=== PATIENT | female | born 1965 | race Caucasian/White ===

== ENCOUNTER 2023-01-06 21:06 | Outpatient (CLI) | payer MEDICARE, MEDICAID, SELFPAY | END 2023-01-06 21:07 | disposition home or self-care (01) | LOC: SLEEP 21:10 | PROVIDERS: Visit Provider Nurse Practitioner | DX: G47.33 Obstructive sleep apnea (adult) (pediatric) (principal) | CPT/HCPCS: 95810 ==

== ENCOUNTER 2023-11-18 12:43 | Outpatient (CLI) | payer MEDICARE, MEDICAID, SELFPAY | END 2023-11-18 12:44 | disposition home or self-care (01) | LOC: AMB 11-28 08:32 | PROVIDERS: Visit Provider Family Medicine | DX: E11.65 Type 2 diabetes mellitus with hyperglycemia (principal) | CPT/HCPCS: A0425; A0429 ==

== ENCOUNTER 2023-11-18 13:06 | Emergency (ER) | payer MEDICARE, MEDICAID, SELFPAY ==
[2023-11-18] VITALS (7 sets, daily range): BP systolic 114–134; BP diastolic 67–83; PULSE 83–100; RESP 16–18; TEMP 36.7; O2SAT 95–98; BMI 31.6
--- NOTE | 2023-11-18 13:24 | ED.GENADULT ---
HPI - General Adult General Chief complaint: Diabetic Related Problem Stated complaint: Diabetes Time Seen by Provider: 11/18/23 13:22 History of Present Illness HPI narrative: Patient been feeling ill for months mush brain. Recent Dx with diabetes, back in clinic today for recheck and blood glucose at 438. Very hard to eat. 58-year-old woman presenting to the emergency depart with concern of high blood sugars. I was contacted by clinic where she was being seen blood sugar over 450 beyond the reading. Was more confused today. Does live independently. Newly diagnosed with diabetes with hemoglobin A1c reported of 13.9. Has been for many months does not feeling well. Kind of foggy. Headaches over the last month or 2. She has been extremely thirsty. I asked her if she has been urinating a lot and she says whenever I drink which apparently also has frequent. No pain other than the headaches. No focal weakness. No fevers. No cough cold symptoms described. She has been having a lot of nausea which has been making it hard to eat. She denies nausea though at this time. Does note a history of IBS and chronic diarrhea. Related Data Home Medications Medication Instructions Recorded Confirmed buspirone 30 mg tablet 30 mg PO BID 11/18/23 11/18/23 celecoxib 200 mg capsule 200 mg PO PRN 11/18/23 duloxetine 30 mg capsule,delayed mg PO 11/18/23 release duloxetine 60 mg capsule,delayed mg PO 11/18/23 release fluconazole 150 mg tablet mg PO 11/18/23 fluticasone 500 mcg-salmeterol 50 1 ea inhalation BID 11/18/23 11/18/23 mcg/dose blistr powdr for inhalation (Advair Diskus) fluticasone propionate 50 2 spray intranasal DAILY 11/18/23 11/18/23 mcg/actuation nasal spray,suspension gabapentin 300 mg capsule mg PO 11/18/23 levothyroxine 50 mcg tablet 50 mcg PO QAM 11/18/23 11/18/23 linaclotide 290 mcg capsule 290 mcg PO DAILY 11/18/23 11/18/23 (Linzess) metformin 500 mg tablet mg PO 11/18/23 metronidazole 500 mg tablet 500 mg PO BID 11/18/23 11/18/23 montelukast 10 mg tablet 10 mg PO QPM 11/18/23 11/18/23 omeprazole 40 mg capsule,delayed 40 mg PO DAILY 11/18/23 11/18/23 release polyethylene glycol 3350 17 17 g PO DAILY 11/18/23 11/18/23 gram/dose oral powder quetiapine 100 mg tablet 100 mg PO QPM 11/18/23 11/18/23 sumatriptan succinate 50 mg tablet See Rx Instructions PO .COMPLEX 11/18/23 11/18/23 (Imitrex) topiramate 100 mg tablet 100 mg PO BID 11/18/23 11/18/23 Previous Rx's Medication Instructions Recorded ondansetron 4 mg disintegrating 4 mg PO Q4-6H PRN nausea and 11/18/23 tablet vomiting #20 tabs Allergies Allergy/AdvReac Type Severity Reaction Status Date / Time morphine Allergy Intermediate Itching Verified 11/18/23 14:01 methadone Allergy Unknown Verified 11/18/23 14:01 Review of Systems Status of ROS: Reports: 6 or more systems reviewed and unremarkable except as noted in History and below PFSH PFS Social History Smoking Status: Never smoker Do you use any of these nicotine containing products: Vaping Products Second hand tobacco smoke exposure: No How often do you have a drink containing alcohol: never AUDIT-C Alcohol total score: 0 Non-prescribed substance use: marijuana (any form) service: No Exam Narrative: Exam Narrative: Seems distracted. Generally uncomfortable. Breathing easily. Oropharynx is sticky. Cranial nerves 2-12 intact. Pupils are equal and risk. Lungs are clear. Heart in elevated to tachycardic rate in a regular rhythm. Abdomen is soft overweight and not tender. Extremities without edema. Skin is warm and dry without apparent rash. Const: Vital Signs, click to edit/add: Vital Signs - 24 hr 11/18/23 13:12 11/18/23 14:07 11/18/23 16:23 Temperature 98.1 F Pulse Rate [Pulse Oximeter] 100 94 91 Respiratory Rate 16 16 18 Blood Pressure [Ri ght Upper Arm] 114/67 134/83 119/77 Pulse Oximetry 95 98 95 Oxygen Delivery Me thod Room Air Room Air Room Air Documenting provider has reviewed patient's vital signs: yes Course Vital Signs Vital signs: Initial Vital Signs Temperature 98.1 F 11/18/23 13:12 Temperature Source Temporal Artery Scan 11/18/23 13:12 Pulse Rate 100 11/18/23 13:12 Respiratory Rate 16 11/18/23 13:12 Blood Pressure 114/67 11/18/23 13:12 Blood Pressure Mean 82 11/18/23 13:12 Blood Pressure Position Sitting 11/18/23 13:12 Pulse Oximetry 95 11/18/23 13:12 Oxygen Delivery Method Room Air 11/18/23 13:12 Vital Signs Temperature 98.1 F 11/18/23 13:12 Pulse Rate 100 11/18/23 13:12 Respiratory Rate 16 11/18/23 13:12 Blood Pressure 114/67 11/18/23 13:12 Pulse Oximetry 95 11/18/23 13:12 Oxygen Delivery Method Room Air 11/18/23 13:12 Temperature 98.1 F 11/18/23 13:12 Pulse Rate 91 11/18/23 16:23 Respiratory Rate 18 11/18/23 16:23 Blood Pressure 119/77 11/18/23 16:23 Pulse Oximetry 95 11/18/23 16:23 Oxygen Delivery Method Room Air 11/18/23 16:23 Medications Administered Medications: Discontinued Medications Generic Name Dose Route Start Last Admin Trade Name Freq PRN Reason Stop Dose Admin Sodium Chloride 1,000 mls @ 1,000 mls/hr 11/18/23 13:40 11/18/23 15:10 0.9 % Sodium Chloride 1000 Ml IV 11/18/23 14:39 Infused .Q1H ONE Infusion Lactated Ringer's 1,000 mls @ 1,000 mls/hr 11/18/23 14:42 11/18/23 18:14 Lactated Ringers 1000 Ml IV 11/18/23 15:41 Infused .Q1H ONE Infusion Medical Decision Making MDM Narrative Medical decision making narrative: Will monitor here in the emergency department. I think is dehydrated at a minimum. Will look for evidence of infection. Check labs for degree of acidosis to warrant other emergent interventions. Is struggling with idea of diabetes and treatment for this and reestablishing primary care/clinic. Struggling with nutrition recommendations. Spent some time in discussion about management of diabetes. Labs are overall reassuring. VBGs, showing slight compensated acidosis. Normal sodium and potassium and renal function. Urine notable for ketones. And blood sugar about 450. Improved on recheck during time in the ER. On reassessment, noting that feels improved. More energy. I think can be discharged to outpatient follow up. See patient discharge plan for further discussion Lab Data Lab results reviewed: Yes I reviewed the patient's lab results Labs: Lab Results 11/18/23 11/18/23 11/18/23 Range/Units 13:55 14:00 18:29 WBC 6.86 (4.50-11.00) K/uL RBC 5.10 (4.00-5.20) m/uL Hgb 16.2 H (12.0-16.0) gm/dL Hct 46.5 (33.0-51.0) % MCV 91 (80-100) fL MCH 32 (26-34) pg MCHC 35 (32-36) gm/dL RDW Coeff of Vicky 12.3 (11.5-15.5) % Plt Count 292 (140-440) K/uL Neut % (Auto) 56.1 (42.0-72.0) % Lymph % (Auto) 30.8 (20-44) % Anson % (Auto) 6.4 (0.0-11.0) % Eos % (Auto) 5.4 (0.0-7.0) % Baso % (Auto) 0.9 (0.0-3.0) % Neut # (Auto) 3.85 (1.7-7.0) K/uL Lymph # (Auto) 2.11 (0.90-2.90) K/uL Anson # (Auto) 0.40 (0.00-0.90) K/UL Eos # (Auto) 0.37 (0.00-0.50) K/uL Baso # (Auto) 0.06 (0.00-0.30) K/uL Abs Immat Gran (auto) 0.03 (0.00-0.30) K/uL Imm/Tot Granulo (auto) 0.4 % VBG pH 7.313 L (7.32-7.43) VBG pCO2 43 (40-50) mmHG VBG pO2 < 30.0 (25-47) mmHG VBG HCO3 22 (21-28) mmol/L Sodium 135 (135-149) mmol/L Potassium 4.9 (3.6-5.1) mmol/L Chloride 105 (96-114) mmol/L Carbon Dioxide 20 (20-32) mmol/L Anion Gap 10 (7-15) mEq/L BUN 24 (7-30) mg/dL Creatinine 0.5 (0.5-1.5) mg/dL Estimated Creat Clear 113.05 Estimated GFR 110 ml/min Glucose 458 H* (60-115) mg/dL Lactate 1.4 (0.5-1.9) mmol/L Calcium 9.3 (8.4-10.6) mg/dL Magnesium 2.0 (1.5-2.6) mg/dL Total Bilirubin 0.7 (0.1-1.5) mg/dL Direct Bilirubin 0.4 (0.0-0.5) mg/dL AST 34 (12-35) U/L ALT 45 H (4-35) U/L Alkaline Phosphatase 135 (40-150) U/L C-Reactive Protein < 0.5 L (0.5-1.0) mg/dL NT-Pro-B Natriuret Pep < 20 pg/mL Total Protein 7.1 (6.0-8.3) g/dL Albumin 4.1 (3.3-5.0) g/dL Lipase 152 (23-300) U/L TSH 3.030 (0.270-4.20) uIU/mL Urine Color Yellow (Yellow) Urine Appearance Clear (Clear) Urine pH 5.5 (5.0-8.5) Ur Specific Hilbert 1.010 (1.000-1.030) Urine Protein Negative (Negative) Urine Glucose (UA) 2+ A (Negative) Urine Ketones 3+ A (Negative) Urine Blood Negative (Negative) Urine Nitrite Negative (Negative) Urine Bilirubin Negative (Negative) Urine Urobilinogen 0.2 (0.2-1.0) Ur Leukocyte Esterase Negative (Negative) Urine RBC 0-2 (0-2) Urine WBC 0-2 (0-5) Ur Squamous Epith Cells Few (None-Few) Urine Bacteria Few A (None) Urine Opiates Screen Negative (Negative) Ur Oxycodone Screen Negative (Negative) Urine Methadone Screen Negative (Negative) Ur Barbiturates Screen Negative (Negative) U Tricyclic Antidepress Negative (Negative) Ur Phencyclidine Scrn Negative (Negative) Ur Amphetamines Screen Negative (Negative) U Methamphetamines Scrn Negative (Negative) U Benzodiazepines Scrn Negative (Negative) Urine Cocaine Screen Negative (Negative) U Marijuana (THC) Screen Negative (Negative) Ur Drug Screen Comment See Note Lab Acknowledgement Test Added ECG Data Attestation: I personally reviewed and interpreted this ECG as follows: (normal sinus rhythm with a partial right bundle and a rate of 95) Discharge Plan Discharge Clinical Impression: Diabetes, Hyperglycemia, Dehydration Patient Disposition: Home w/ Parent or Adult Condition: Improved Additional Instructions: Does appear that you have a number of challenges. Please look at this as an opportunity as well. Please continue taking your metformin. Please call tomorrow to follow-up appointment with your new primary care provider. Also reschedule with the pre billing clinician. In the meantime I do think that there should be a good amount of information on eating for diabetes and for vegetarian online as discussed. Prescriptions: New ondansetron 4 mg tablet,disintegrating 4 mg PO Q4-6H PRN (Reason: nausea and vomiting) Qty: 20 0RF No Action celecoxib 200 mg capsule 200 mg PO PRN metformin 500 mg tablet PO fluconazole 150 mg tablet PO metronidazole 500 mg tablet 500 mg PO BID omeprazole 40 mg capsule,delayed release(DR/EC) 40 mg PO DAILY quetiapine 100 mg tablet 100 mg PO QPM levothyroxine 50 mcg tablet 50 mcg PO QAM buspirone 30 mg tablet 30 mg PO BID fluticasone propion-salmeterol [Advair Diskus] 500-50 mcg/dose blister with device 1 ea INHALATION BID gabapentin 300 mg capsule PO montelukast 10 mg tablet 10 mg PO QPM polyethylene glycol 3350 17 gram/dose powder 17 g PO DAILY topiramate 100 mg tablet 100 mg PO BID fluticasone propionate 50 mcg/actuation spray,suspension 2 spray INTRANASAL DAILY duloxetine 30 mg capsule,delayed release(DR/EC) PO duloxetine 60 mg capsule,delayed release(DR/EC) PO Linzess 290 mcg capsule 290 mcg PO DAILY sumatriptan succinate [Imitrex] 50 mg tablet See Rx Instructions .ROUTE .COMPLEX Rx Instructions: take 1 tab at onset of headache; if no relief may repeat 1 tab after at least 2 hrs; max = 4 tabs/24 hr Follow Up/Referrals: Provider,Not a Local [Primary Care Provider] - Stand Alone Forms: [employer] Info Instructions
[2023-11-18] MEDS: 0.9 % SODIUM CHLORIDE 1000 ml 1,000 ML IV (14:00)
[2023-11-18 14:06] LABS: Lactate* 1.4 mmol/L (0.5-1.9)
[2023-11-18 14:07] LABS: PCO2 VBG 43 mmHG (40-50); PO2 VBG < 30.0 mmHG (25-47); pH VBG 7.313 (7.32-7.43)
[2023-11-18 14:08] LABS: HCO3 VBG 22 mmol/L (21-28)
[2023-11-18 14:09] LABS: Appearance Urine Clear (Clear); Bilirubin Urine Negative (Negative); Blood Urine Negative (Negative); Color Urine Yellow (Yellow); Glucose Urine 2+ (Negative); Ketones Urine 3+ (Negative); Leukocyte Esterase Urine Negative (Negative); Nitrite Urine Negative (Negative); Protein Urine Negative (Negative); Urobilinogen Urine 0.2 (0.2-1.0); pH Urine 5.5 (5.0-8.5)
[2023-11-18 14:10] LABS: Basophils Absolute Auto 0.06 K/uL (0.00-0.30); Basophils Percent Auto 0.9 % (0.0-3.0); Eosinophils Absolute Auto 0.37 K/uL (0.00-0.50); Eosinophils Percent Auto 5.4 % (0.0-7.0); Hematocrit 46.5 % (33.0-51.0); Hemoglobin* 16.2 gm/dL (12.0-16.0); Immature Granulocytes Abs Auto 0.03 K/uL (0.00-0.30); Immature Granulocytes Pct Auto 0.4 %; Lymphocytes Absolute Auto 2.11 K/uL (0.90-2.90); Lymphocytes Percent Auto 30.8 % (20-44); Mean Corpuscular HGB Conc 35 gm/dL (32-36); Mean Corpuscular Hemoglobin 32 pg (26-34); Mean Corpuscular Volume 91 fL (80-100); Monocytes Percent Auto 6.4 % (0.0-11.0); Neutrophils Absolute Auto 3.85 K/uL (1.7-7.0); Neutrophils Percent Auto 56.1 % (42.0-72.0); Platelet Count* 292 K/uL (140-440); RDW Coefficient of Variation % 12.3 % (11.5-15.5); White Blood Count* 6.86 K/uL (4.50-11.00)
[2023-11-18 14:13] LABS: Slide Review Reflex No
[2023-11-18 14:19] LABS: Amphetamine Screen Urine Negative (Negative); Barbiturate Screen Urine Negative (Negative); Benzodiazepines Screen Urine Negative (Negative); Cannabinoid Screen Urine Negative (Negative); Cocaine Screen Urine Negative (Negative); Methadone Screen Urine Negative (Negative); Methamphetamines Screen Urine Negative (Negative); Opiate Screen Urine Negative (Negative); Oxycodone Screen Urine Negative (Negative); Phencyclidine Screen Urine Negative (Negative); Tricyclic Antidepressant Urine Negative (Negative)
[2023-11-18 14:25] LABS: Bacteria Urine Few; RBC Urine 0-2 (0-2); Squamous Epithelial Cell Urine Few (None-Few); WBC Urine 0-2 (0-5)
[2023-11-18 14:39] LABS: Albumin* 4.1 g/dL (3.3-5.0); Chloride* 105 mmol/L (96-114)
[2023-11-18 14:40] LABS: Potassium* 4.9 mmol/L (3.6-5.1); Sodium* 135 mmol/L (135-149)
[2023-11-18 14:42] LABS: Alkaline Phosphatase* 135 U/L (40-150); Anion Gap 10 mEq/L (7-15); Aspartate Amino Transferase* 34 U/L (12-35); Bilirubin Direct* 0.4 mg/dL (0.0-0.5); Bilirubin Total* 0.7 mg/dL (0.1-1.5); Blood Urea Nitrogen* 24 mg/dL (7-30); Carbon Dioxide* 20 mmol/L (20-32); Creatinine* 0.5 mg/dL (0.5-1.5); Est. Creatinine Clearance* 113.05; Estimated Glomerular Filt Rate 110 ml/min; Total Protein* 7.1 g/dL (6.0-8.3)
[2023-11-18 14:43] LABS: Alanine Aminotransferase* 45 U/L (4-35); Calcium* 9.3 mg/dL (8.4-10.6); Lipase* 152 U/L (23-300)
[2023-11-18 14:53] LABS: NT Pro B Type NatriureticPept* < 20 pg/mL
[2023-11-18] MEDS: LACTATED RINGERS 1000 ML 1,000 ML IV (15:11)
[2023-11-18 15:12] LABS: C Reactive Protein* < 0.5 mg/dL (0.5-1.0)
[2023-11-18 15:13] LABS: Glucose* 458 mg/dL (60-115)
--- NOTE | 2023-11-18 15:57 | CT_ITS ---
Patient: MUNA COLLADO Facility:?[facility] Patient ID:?[id number] Site Patient ID:?[id number]. Site :?[id number] Study:?CT-Head W/O-11/18/2023 4:34:59 PM Ordering Physician:ANNABEL Final Report: INDICATION: Acute mental status change TECHNIQUE: Non-contrast CT of the head is submitted. No comparisons. FINDINGS: The ventricles, sulci and gyri are of normal size, shape and contour. Midline structures are centrally located. No convincing evidence of intra- or extra- axial fluid collections. IMPRESSION: 1. No radiographic evidence of acute intracranial abnormalities. Please note that all CT scans at this facility use dose modulation, iterative reconstruction, and/or weight-based dosing when appropriate to reduce radiation dose to as low as reasonably achievable. Dictated by Brad Moses MD @ 11/18/2023 5:22:43 PM Signed by:?Brad Moses MD @11/18/2023 5:22:43 PM (Electronic Signature)
== END 2023-11-18 19:13 | disposition home or self-care (01) ==
PROVIDERS: Emergency Provider Family Medicine
DX: E11.65 Type 2 diabetes mellitus with hyperglycemia (principal); R82.90 Unspecified abnormal findings in urine
CPT/HCPCS: 36415; 70450; 80048; 80076; 80306; 81001; 82803; 82962; 83605; 83690; 83735; 83880; 84443; 85025; 86140; 87086; 87631; 93005; 99284; 99285; J7030; J7120

== ENCOUNTER 2023-12-25 17:29 | Observation (INO) | payer MEDICARE, MEDICAID, SELFPAY ==
[2023-12-25] VITALS (31 sets, daily range): BP systolic 95–148; BP diastolic 69–94; PULSE 73–94; RESP 18–19; TEMP 36.4–36.8; O2SAT 95–100; BMI 32.1; BMI 32.6
--- NOTE | 2023-12-25 17:39 | ED.GENADULT ---
HPI - General Adult General Chief complaint: Syncope/Fainted Stated complaint: Syncopal Time Seen by Provider: 12/25/23 17:31 History of Present Illness HPI narrative: pt was picking up car from getting brakes done. witnessed syncopal event, pt kneeling down and legs locked up. witnesses state 30-45 seconds of LOC. hit head on pavement. lac to back of head . arrives with c-collar in place. new diabetic. blood sugar 133 per ems. pt states this has happened at home to her in the past... nausea, given 4mg zofran iv by ems. 58-year-old woman presenting to the emergency depart after apparent syncopal event. Apparently was witnessed kneeling down and locked up striking back of her head on the pavement. Reported loss of consciousness by witnesses was 30-45 seconds. She rise via EMS with C-collar on. I saw Ms. Guillaume in this department about 6 weeks ago with new diagnosis of diabetes. She was measured at 133 per EMS. She says she has been working very hard to manage this diabetes and that her doctor is awesome. It she is complaining now of intense pain at the back of her head. Has been experiencing some photophobia secondary to the pain that she is having. She is nauseated. EMS did give 4 of Zofran. Ms. Guillaume is able answer some questions noting how she has been passing out over the last year or so. She does not know why. Has not really disclose this to anybody other than sounds like her daughter. She tends not to spent too much time outside of her apartment. Most of these falls apparently have been in her apartment and she describes orthostatic events. She reports falling on her face and breaking her nose. She does not believe she has been experiencing palpitations or irregular heartbeats. She is not reporting feeling lightheaded or dizzy at this time. She says though that she can feel these episodes coming on but she is not able to be clear on what she feels as the prodrome. At this time no peripheral numbness or tingling or injuries. No focal weakness noted. Initially lying on her left side preferring not to move. I was initially assuming that this was due to head injury that she does not want to lay on her back has a would put pressure on her head. She is able later to say that since hitting her head that she she is worried to roll onto her back partly because ?it's bad? and with further questioning able to clarify that it is dizziness that she is trying to avoid. Initially she tells me that this is a symptom since she had her head but then can not be sure; unsure if was dizzy before. Initially noting neck pain on reexamination she is with soreness in the left pericervical musculature but it really is in the mid left clavicle supraspinatus and surrounding trapezial musculature. Does not appear to have bony tenderness specifically. Related Data Home Medications Medication Instructions Recorded Confirmed buspirone 30 mg tablet 30 mg PO BID 11/18/23 11/18/23 celecoxib 200 mg capsule 200 mg PO PRN 11/18/23 duloxetine 30 mg capsule,delayed mg PO 11/18/23 release duloxetine 60 mg capsule,delayed mg PO 11/18/23 release fluconazole 150 mg tablet mg PO 11/18/23 fluticasone 500 mcg-salmeterol 50 1 ea inhalation BID 11/18/23 11/18/23 mcg/dose blistr powdr for inhalation (Advair Diskus) fluticasone propionate 50 2 spray intranasal DAILY 11/18/23 11/18/23 mcg/actuation nasal spray,suspension gabapentin 300 mg capsule mg PO 11/18/23 levothyroxine 50 mcg tablet 50 mcg PO QAM 11/18/23 11/18/23 linaclotide 290 mcg capsule 290 mcg PO DAILY 11/18/23 11/18/23 (Linzess) metformin 500 mg tablet mg PO 11/18/23 metronidazole 500 mg tablet 500 mg PO BID 11/18/23 11/18/23 montelukast 10 mg tablet 10 mg PO QPM 11/18/23 11/18/23 omeprazole 40 mg capsule,delayed 40 mg PO DAILY 11/18/23 11/18/23 release polyethylene glycol 3350 17 17 g PO DAILY 11/18/23 11/18/23 gram/dose oral powder quetiapine 100 mg tablet 100 mg PO QPM 11/18/23 11/18/23 sumatriptan succinate 50 mg tablet See Rx Instructions PO .COMPLEX 11/18/23 11/18/23 (Imitrex) topiramate 100 mg tablet 100 mg PO BID 11/18/23 11/18/23 Previous Rx's Medication Instructions Recorded ondansetron 4 mg disintegrating 4 mg PO Q4-6H PRN nausea and 11/18/23 tablet vomiting #20 tabs Allergies Allergy/AdvReac Type Severity Reaction Status Date / Time morphine Allergy Intermediate Itching Verified 11/18/23 14:01 methadone Allergy Unknown Verified 11/18/23 14:01 Review of Systems Status of ROS: Reports: 6 or more systems reviewed and unremarkable except as noted in History and below PFSH PFS Social History Smoking Status: Never smoker Do you use any of these nicotine containing products: Vaping Products Second hand tobacco smoke exposure: No How often do you have a drink containing alcohol: never AUDIT-C Alcohol total score: 0 Non-prescribed substance use: marijuana (any form) service: No Exam Narrative: Exam Narrative: Clearly very uncomfortable. Eyes are closed tight reportedly against a light initial. Opening them though does reveal symmetrical pupils. Extraocular movements are intact; cranial nerves 2-12 are intact. Symptoms are not exacerbated by eye movement; there is no nystagmus. Has a C-collar on. Hair is disheveled. Some mild swelling superior occipital head. No significant hematoma. The neck is without midline tenderness but there is left paracervical muscle tenderness more so though into the left supraspinatus proximally the mid left clavicle and surrounding trapezius. She does not have tenderness the deltoid or the AC joint or directly over the clavicle itself. No midline back tenderness until mid back where is this subtle line. Appears to be more of a superficial impact. Is line is diagonal across the mid back. Presumably sustained from flatter surface when she fell back hitting her head. Heart in regular rate and rhythm. Abdomen is soft appears to be nontender. There is scars over the bilateral forearms consistent with picking. Lungs are clear. Extremities appear to be without injury. Dentition intact. Re-examination of scalp after clearing C-spine, there is a quarter-sized area of erythema/abrasion on the mid upper occipital scalp. This is oozing a little bit of blood. Not really a laceration to repair. Const: Vital Signs, click to edit/add: Vital Signs - 24 hr 12/25/23 17:34 12/25/23 17:49 12/25/23 18:02 Temperature 97.6 F Pulse Rate 83 88 Pulse Rate [Pulse Oximeter] 88 Pulse Rate [orthos tatic lying Pulse Oximeter] Pulse Rate [orthos tatic sitting Puls e Oximeter] Pulse Rate [orthos tatic standing Pul se Oximeter] Respiratory Rate 18 Blood Pressure Blood Pressure [Ri ght Upper Arm] 95/69 Blood Pressure [or thostatic lying Le ft Arm] Blood Pressure [or thostatic sitting Left Arm] Blood Pressure [or thostatic standing Left Arm] Pulse Oximetry 100 95 97 Oxygen Delivery Me thod Room Air 12/25/23 18:03 12/25/23 19:21 Temperature Pulse Rate 91 Pulse Rate [Pulse Oximeter] Pulse Rate [orthos tatic lying Pulse Oximeter] 80 Pulse Rate [orthos tatic sitting Puls e Oximeter] 86 Pulse Rate [orthos tatic standing Pul se Oximeter] 94 Respiratory Rate Blood Pressure 148/84 H Blood Pressure [Ri ght Upper Arm] Blood Pressure [or thostatic lying Le ft Arm] 136/71 Blood Pressure [or thostatic sitting Left Arm] 133/78 Blood Pressure [or thostatic standing Left Arm] 118/86 Pulse Oximetry 99 Oxygen Delivery Me thod Documenting provider has reviewed patient's vital signs: yes Course Vital Signs Vital signs: Initial Vital Signs Temperature 97.6 F 12/25/23 17:34 Temperature Source Temporal Artery Scan 12/25/23 17:34 Pulse Rate 88 12/25/23 17:34 Respiratory Rate 18 12/25/23 17:34 Blood Pressure 95/69 12/25/23 17:34 Blood Pressure Mean 77 12/25/23 17:34 Blood Pressure Position Supine 12/25/23 17:34 Pulse Oximetry 100 12/25/23 17:34 Oxygen Delivery Method Room Air 12/25/23 17:34 Vital Signs Temperature 97.6 F 12/25/23 17:34 Pulse Rate 88 12/25/23 17:34 Respiratory Rate 18 12/25/23 17:34 Blood Pressure 95/69 12/25/23 17:34 Pulse Oximetry 100 12/25/23 17:34 Oxygen Delivery Method Room Air 12/25/23 17:34 Temperature 97.6 F 12/25/23 17:34 Pulse Rate 80 12/25/23 19:21 Respiratory Rate 18 12/25/23 17:34 Blood Pressure 136/71 12/25/23 19:21 Pulse Oximetry 99 12/25/23 18:03 Oxygen Delivery Method Room Air 12/25/23 17:34 Medications Administered Medications: Discontinued Medications Generic Name Dose Route Start Last Admin Trade Name Cierra PRN Reason Stop Dose Admin Diazepam 5 mg 12/25/23 19:11 12/25/23 19:36 Diazepam 5 Mg/Ml Inj IV 12/25/23 19:12 5 mg ONCE ONE Administration Fentanyl 50 mcg 12/25/23 17:48 12/25/23 18:10 Fentanyl 100 Mcg/2 Ml Inj IVP 12/25/23 17:49 50 mcg ONCE ONE Administration Sodium Chloride 1,000 mls @ 1,000 mls/hr 12/25/23 17:48 12/25/23 19:24 0.9 % Sodium Chloride 1000 Ml IV 12/25/23 18:47 Infused .Q1H ONE Infusion Ondansetron HCl 4 mg 12/25/23 17:48 12/25/23 18:13 Ondansetron 2 Mg/Ml Inj IVP 12/25/23 17:49 Not Given ONCE ONE Promethazine HCl 12.5 mg 12/25/23 17:53 12/25/23 18:12 Promethazine 25 Mg/Ml Inj IVP 12/25/23 17:54 12.5 mg ONCE ONE Administration Medical Decision Making MDM Narrative Medical decision making narrative: With these recurrent unwitnessed falls though does appear to be orthostatic way she describes it, and in addition to head injury today, I think imaging is in order. CT both head and neck. IV was established left arm already by EMS. She does have a history of being seen in a pain clinic. Sounds as though this was for rheumatoid arthritis which is markedly better now that receiving regular injections of immune modulator. Is not under the care of Pain Clinic now. Has been intolerant of morphine causing itching methadone was tried apparently by the pain clinic and she does not know what the allergy or intolerance was. Will be giving fentanyl due to marked discomfort. Normal saline as well. She request for us to remove the C-collar and verified again no midline tenderness. This was apparently really exacerbating her pain. I discussed concern with her though for removing. Will need to assess orthostatics. Symptoms could certainly be intracranial lesion, some sort of hydrocephalus, other lesion. Need to reassess this dizziness. Perhaps this is post head injury or may have preceded. EKG shows a normal sinus rhythm. Could have been some dysrhythmia precipitating. Also in differential is anemia. Blood sugars are much better than when last seen at this facility. She was struggling with dehydration at that time. CT scan of head reviewed by me looks to be without acute abnormality. No remarkable asymmetry. Radiology over-read noting some left maxillary sinus fluid CT scan of cervical spine reviewed by me shows degenerative changes On reassessment pain is improved. However I do go to set her up and she is hit by waves of dizziness ?it's bad? where everything is moving. She does say later that this dizziness is worse than usual. It does not appear that this was occurring prior to hitting her head today. Collecting history is rather difficult. Needs prompting and has poor recollection. Friend/significant other arrives later noting how Ms. Guillaume can just fall down. This is not a new phenomenon apparently. Finally after more lengthy questioning Ms. Guillaume notes that she has been struggling with ?vertigo? for a long time; probably more than a year. That she has the untreatable kind she was told by specialist - further questioning reveals that saw a neurologist. Uncertain with soon. Maybe Shaun. Prior to coming to [facility] had been seeing a provider in [facility] [place]. Apparently had extensive evaluation over a year ago. She did attend actually physical therapy. She says that if it is a the right ear or the left ear then it can be treated but then sometimes she has the kind that ?can not be fixed?. She says she can black out with the dizziness. Orthostatics are nearly positive. I would suspect concussion sustained today. Sounds like may well have had some concussions prior. Does not appear that will be able to go home on her own. May need further evaluation for these, for lack of a better term, ?drop attacks?. Uncertain degree of evaluation has occurred so far. Hopefully can provide more information when more mentally clear. Medical Records Medical records reviewed: Yes I reviewed the patient's medical records Lab Data Lab results reviewed: Yes I reviewed the patient's lab results Labs: Lab Results 12/25/23 Range/Units 18:03 WBC 7.45 (4.50-11.00) K/uL RBC 4.60 (4.00-5.20) m/uL Hgb 14.7 (12.0-16.0) gm/dL Hct 44.0 (33.0-51.0) % MCV 96 (80-100) fL MCH 32 (26-34) pg MCHC 33 (32-36) gm/dL RDW Coeff of Vicky 12.4 (11.5-15.5) % Plt Count 341 (140-440) K/uL Neut % (Auto) 62.9 (42.0-72.0) % Lymph % (Auto) 24.2 (20-44) % [place] % (Auto) 6.2 (0.0-11.0) % Eos % (Auto) 5.9 (0.0-7.0) % Baso % (Auto) 0.5 (0.0-3.0) % Neut # (Auto) 4.69 (1.7-7.0) K/uL Lymph # (Auto) 1.80 (0.90-2.90) K/uL [place] # (Auto) 0.50 (0.00-0.90) K/UL Eos # (Auto) 0.44 (0.00-0.50) K/uL Baso # (Auto) 0.04 (0.00-0.30) K/uL Abs Immat Gran (auto) 0.02 (0.00-0.30) K/uL Imm/Tot Granulo (auto) 0.3 % Sodium 141 (135-149) mmol/L Potassium 3.9 (3.6-5.1) mmol/L Chloride 109 (96-114) mmol/L Carbon Dioxide 25 (20-32) mmol/L Anion Gap 7 (7-15) mEq/L BUN 16 (7-30) mg/dL Creatinine 0.7 (0.5-1.5) mg/dL Estimated Creat Clear 80.75 Estimated GFR 101 ml/min Glucose 101 (60-115) mg/dL Calcium 8.8 (8.4-10.6) mg/dL Magnesium 2.1 (1.5-2.6) mg/dL Total Bilirubin 0.3 (0.1-1.5) mg/dL Direct Bilirubin 0.1 (0.0-0.5) mg/dL AST 21 (12-35) U/L ALT 28 (4-35) U/L Alkaline Phosphatase 84 (40-150) U/L Troponin I < 0.01 L (0.01-0.04) ng/mL C-Reactive Protein < 0.5 L (0.5-1.0) mg/dL NT-Pro-B Natriuret Pep < 20 pg/mL Total Protein 7.0 (6.0-8.3) g/dL Albumin 4.1 (3.3-5.0) g/dL Ethyl Alcohol < 0.01 L (0.01-0.03) % POC Troponin I 0.00 L (0.01-0.04) ng/ml ECG Data Attestation: I personally reviewed and interpreted this ECG as follows: (Normal sinus rhythm. Rate of 89.) Discharge Plan Discharge Clinical Impression: AMS (altered mental status), Concussion, Dizziness, Closed head injury Patient Disposition: Admitted As Observation Condition: Stable
--- NOTE | 2023-12-25 17:48 | CT_ITS ---
Patient: MUNA COLLADO Facility:?[facility] Patient ID:?[id number] Site Patient ID:?[id number]. Site :?[id number] Study:?CT-Spine Cervical WITHOUT-12/25/2023 6:26:10 PM Ordering Physician:LUIGI Final Report: INDICATION: RECURRENT SYNCOPE AND HEAD INJURY TECHNIQUE: CT of the cervical spine was performed without intravenous contrast. COMPARISON: None. FINDINGS: Alignment: Normal. Vertebrae: Vertebral bodies and posterior elements are intact without acute fracture. [id number] multilevel degenerative changes. Extra-vertebral soft tissues: Normal. Visualized brain: Normal. Additional comment: None. IMPRESSION: No acute displaced fracture or malalignment of the cervical spine. Please note that all CT scans at this facility use dose modulation, iterative reconstruction, and/or weight-based dosing when appropriate to reduce radiation dose to as low as reasonably achievable. Dictated by Ion Parada MD @ 12/25/2023 7:03:40 PM Signed by:?Ion Parada MD @12/25/2023 7:03:40 PM (Electronic Signature)
--- NOTE | 2023-12-25 17:48 | CT_ITS ---
Patient: MUNA COLLADO Facility:?[facility] Patient ID:?[id number] Site Patient ID:?[id number]. Site :?[id number] Study:?CT-Head WITHOUT-12/25/2023 6:24:48 PM Ordering Physician:LUIGI Final Report: INDICATION: RECURRENT SYNCOPE AND HEAD INJURY TECHNIQUE: CT of the head was performed without IV contrast. COMPARISON: 11/18/2023. FINDINGS: Parenchyma: No acute hemorrhage, infarction, or mass. Ventricles and extra-axial spaces: Appropriate for age. Visualized paranasal sinuses: Mild mucosal thickening of the left maxillary sinus. Mastoid air cells: Clear. Bones: No focal abnormality. Additional comment: None. IMPRESSION: No acute intracranial abnormality. Please note that all CT scans at this facility use dose modulation, iterative reconstruction, and/or weight-based dosing when appropriate to reduce radiation dose to as low as reasonably achievable. Dictated by Ion Parada MD @ 12/25/2023 6:57:53 PM Signed by:?Ion Parada MD @12/25/2023 6:57:53 PM (Electronic Signature)
[2023-12-25 18:09] LABS: Basophils Absolute Auto 0.04 K/uL (0.00-0.30); Basophils Percent Auto 0.5 % (0.0-3.0); Eosinophils Absolute Auto 0.44 K/uL (0.00-0.50); Eosinophils Percent Auto 5.9 % (0.0-7.0); Hemoglobin* 14.7 gm/dL (12.0-16.0); Immature Granulocytes Abs Auto 0.02 K/uL (0.00-0.30); Immature Granulocytes Pct Auto 0.3 %; Lymphocytes Percent Auto 24.2 % (20-44); Mean Corpuscular HGB Conc 33 gm/dL (32-36); Mean Corpuscular Hemoglobin 32 pg (26-34); Mean Corpuscular Volume 96 fL (80-100); Monocytes Percent Auto 6.2 % (0.0-11.0); Neutrophils Absolute Auto 4.69 K/uL (1.7-7.0); Neutrophils Percent Auto 62.9 % (42.0-72.0); Platelet Count* 341 K/uL (140-440); RDW Coefficient of Variation % 12.4 % (11.5-15.5); White Blood Count* 7.45 K/uL (4.50-11.00)
[2023-12-25] MEDS: fentaNYL 100 MCG/2 ML inj 50 MCG IVP (18:10)
[2023-12-25 18:11] LABS: Slide Review Reflex No
[2023-12-25] MEDS: PROMETHAZINE 25 MG/ML INJ 12.5 MG IVP (18:12)
[2023-12-25] MEDS: 0.9 % SODIUM CHLORIDE 1000 ml 1,000 ML IV (18:20)
[2023-12-25 18:21] LABS: Chloride* 109 mmol/L (96-114)
[2023-12-25 18:22] LABS: Albumin* 4.1 g/dL (3.3-5.0); Sodium* 141 mmol/L (135-149)
[2023-12-25 18:23] LABS: Potassium* 3.9 mmol/L (3.6-5.1)
[2023-12-25 18:24] LABS: Creatinine* 0.7 mg/dL (0.5-1.5); Est. Creatinine Clearance* 80.75; Estimated Glomerular Filt Rate 101 ml/min
[2023-12-25 18:25] LABS: Alanine Aminotransferase* 28 U/L (4-35); Alkaline Phosphatase* 84 U/L (40-150); Anion Gap 7 mEq/L (7-15); Aspartate Amino Transferase* 21 U/L (12-35); Bilirubin Direct* 0.1 mg/dL (0.0-0.5); Bilirubin Total* 0.3 mg/dL (0.1-1.5); Blood Urea Nitrogen* 16 mg/dL (7-30); Calcium* 8.8 mg/dL (8.4-10.6); Carbon Dioxide* 25 mmol/L (20-32); Glucose* 101 mg/dL (60-115)
[2023-12-25 18:26] LABS: Magnesium* 2.1 mg/dL (1.5-2.6)
[2023-12-25 18:37] LABS: C Reactive Protein* < 0.5 mg/dL (0.5-1.0); Ethanol* < 0.01 % (0.01-0.03); NT Pro B Type NatriureticPept* < 20 pg/mL; Troponin I* < 0.01 ng/mL (0.01-0.04)
[2023-12-25] MEDS: diazePAM 5 MG/ML inj IV (19:36)
--- NOTE | 2023-12-25 21:25 | PM.IMHP1 ---
Hospitalist- H&P: HPI History of Present Illness Date Seen: 12/25/23 Chief complaint: Syncopal Narrative: ADMISSION HISTORY AND PHYSICAL - HOSPITALIST Chief Complaint: I blacked out, my head hurts HPI: 58-year-old white female who has been on disability since her 30s for chronic pain, had a syncopal episode this afternoon. She fell back from a squatted position hitting her posterior skull on the cement. She did suffer a small abrasion and soft tissue swelling. It was witnessed. No specific seizure activity was identified. She was in pain and confused when she woke a few seconds later. EMS was summoned. Drugs or alcohol were not considered in play. She says this is about the 5th time this year that this has happened. She has a new type 2 diabetic insulin requiring. A1c last month was 13.9. However she states her blood sugar has come down nicely with the addition of insulin. EMS states her blood sugar was 130. I can find 1 ER note from March of last year for syncopal episode. Complicating her presentation is her history of chronic severe anxiety and depression. She suffers from chronic pain. She has had vertigo on off for the last 2 years. She states the source of her chronic pain is migraines and osteoarthritis. She suffered childhood trauma and has PTSD, she sleeps poorly. She does not work. She currently does not drive. She lives alone. She is . She has adult children. She smokes pot at night, does not drink, does not do any other recreational drugs. ER COURSE: The workup in the ED was very reassuring. Head CT, neck CT were negative. All her labs were normal. Her blood sugars normal. Her vital signs are normal. She is not orthostatic. However, any ambulation caused increased dizziness and pain. She lives alone. ER staff requested for observation overnight. CODE STATUS: FULL CODE EMERGENCY CONTACT PLAN: Wei Guillaume? Son?Rel to [facility]? [phone]?Cell Phone? I've updated the PFSH, medications and allergies in the Expanse tabs. INVESTIGATIONS: LABS/MICRO/ECG/IMAGING CBC was unremarkable. No leukocytosis. Hemoglobin 14.7. Platelets 341. Chemistries completely unremarkable. Normal renal function. Normal magnesium. Normal glucose. Troponin undetectable. CRP undetectable. Normal BMP. Alcohol undetectable EKG shows normal sinus rhythm. Head CT showed no acute intracranial abnormality. Cervical spine CT was normal REVIEW OF SYSTEMS: 12-point ROS completed with patient and negative unless otherwise stated in HPI or below. PHYSICAL EXAM: CONSTITUTIONAL: Patient does not make good eye contact. She grimaces in pain. She does answer my questions. Med rec was difficult, she really did not know the names of her medications were when she takes them. VITAL SIGNS: see record. HEENT: Normocephalic, atraumatic. PERRL, EOMI, conjunctivae pink, no scleral icterus. Ears and nose externally normal. Pharynx normal. NECK: No JVD. No carotid bruit, no thyromegaly, no adenopathy. CHEST: Clear to auscultation bilaterally HEART: S1 and S2 normal. No harsh murmurs. Edema minimal. MUSCULOSKELETAL: No gross joint deformity or swelling. NEURO: Cranial nerves intact. Grossly intact. No asymmetric findings. No obvious nystagmus. I observed her gait from the bed to the bathroom with standby assist only needed. SKIN: Posterior scalp with a half-dollar sized area of erythema and soft tissue edema, minimal. Small abrasion that is hemostatic. PSYCHIATRIC: Euthymic. ADMIT TO MEDSURG: FLOOR CARE DVT: SCDs, short hospital stay, ambulation GI: PO intake, IV PPI Time spent: Today I spent 75 minutes seeing the patient, discussing the patient with ER staff, reviewing Expanse and EPIC notes/diagnostics, discussing the care plan with our care time that includes social work, PT/OT, pharmacy, RT, retirement and documenting my impressions and plan in the medical record. 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) Former smoker ?Z87.891 - Personal history of nicotine dependence (ICD-10) Depression ?F32.A - Depression, unspecified (ICD-10) Moderate asthma ?J45.909 - Unspecified asthma, uncomplicated (ICD-10) Hypothyroidism ?E03.9 - Hypothyroidism, unspecified (ICD-10) Anxiety ?F41.9 - Anxiety disorder, unspecified (ICD-10) Obesity ?E66.9 - Obesity, unspecified (ICD-10) Surgical History (Updated 12/25/23 @ 21:50 by Becca Sanchez MD) S/P CINDI-BSO ?Z90.710 - Acquired absence of both cervix and uterus (ICD-10) ?Z90.722 - Acquired absence of ovaries, bilateral (ICD-10) ?Z90.79 - Acquired absence of other genital organ(s) (ICD-10) History of laparoscopic cholecystectomy ?Z90.49 - Acquired absence of other specified parts of digestive tract (ICD-10) History of knee surgery ?Z98.890 - Other specified postprocedural states (ICD-10) History of facial surgery ?Z98.890 - Other specified postprocedural states (ICD-10) History of bladder suspension procedure ?Z98.890 - Other specified postprocedural states (ICD-10) ?Z87.448 - Personal history of other diseases of urinary system (ICD-10) Social History Smoking Status: Never smoker Do you use any of these nicotine containing products: Vaping Products Second hand tobacco smoke exposure: No How often do you have a drink containing alcohol: never AUDIT-C Alcohol total score: 0 Non-prescribed substance use: marijuana (any form) service: No Meds Home Medications and Allergies Home Medications Medication Instructions Recorded Confirmed Type buspirone 30 mg tablet 30 mg PO BID 11/18/23 12/25/23 History celecoxib 200 mg capsule 200 mg PO Q24H PRN 11/18/23 12/25/23 History duloxetine 30 mg capsule,delayed 90 mg PO DAILY 11/18/23 12/25/23 History release duloxetine 60 mg capsule,delayed mg PO 11/18/23 History release fluconazole 150 mg tablet mg PO 11/18/23 History fluticasone 500 mcg-salmeterol 50 1 ea inhalation BID 11/18/23 12/25/23 History mcg/dose blistr powdr for inhalation (Advair Diskus) fluticasone propionate 50 2 spray intranasal DAILY 11/18/23 11/18/23 History mcg/actuation nasal spray,suspension gabapentin 300 mg capsule 900 mg PO HS 11/18/23 12/25/23 History levothyroxine 50 mcg tablet 50 mcg PO QAM 11/18/23 12/25/23 History linaclotide 290 mcg capsule 290 mcg PO DAILY 11/18/23 12/25/23 History (Linzess) metformin 500 mg tablet 1,000 mg PO BIDWMEAL 11/18/23 12/25/23 History metronidazole 500 mg tablet 500 mg PO BID 11/18/23 11/18/23 History montelukast 10 mg tablet 10 mg PO QPM 11/18/23 12/25/23 History omeprazole 40 mg capsule,delayed 40 mg PO DAILY 11/18/23 12/25/23 History release polyethylene glycol 3350 17 17 g PO DAILY 11/18/23 11/18/23 History gram/dose oral powder quetiapine 100 mg tablet 100 mg PO QPM 11/18/23 12/25/23 History sumatriptan succinate 50 mg tablet See Rx Instructions PO .COMPLEX 11/18/23 11/18/23 History (Imitrex) topiramate 100 mg tablet 100 mg PO BID 11/18/23 12/25/23 History Allergies Allergy/AdvReac Type Severity Reaction Status Date / Time morphine Allergy Intermediate Itching Verified 11/18/23 14:01 methadone Allergy Unknown Verified 11/18/23 14:01 Exam Const: Vital Signs, click to edit/add: Vital Signs - 24 hr 12/25/23 17:34 12/25/23 17:49 12/25/23 18:02 Temperature 97.6 F Pulse Rate 83 88 Pulse Rate [Pulse Oximeter] 88 Pulse Rate [orthos tatic lying Pulse Oximeter] Pulse Rate [orthos tatic sitting Puls e Oximeter] Pulse Rate [orthos tatic standing Pul se Oximeter] Respiratory Rate 18 Blood Pressure Blood Pressure [Ri ght Upper Arm] 95/69 Blood Pressure [or thostatic lying Le ft Arm] Blood Pressure [or thostatic sitting Left Arm] Blood Pressure [or thostatic standing Left Arm] Pulse Oximetry 100 95 97 Oxygen Delivery Me thod Room Air 12/25/23 18:03 12/25/23 18:04 12/25/23 18:23 Temperature Pulse Rate 91 91 88 Pulse Rate [Pulse Oximeter] Pulse Rate [orthos tatic lying Pulse Oximeter] Pulse Rate [orthos tatic sitting Puls e Oximeter] Pulse Rate [orthos tatic standing Pul se Oximeter] Respiratory Rate Blood Pressure 148/84 H Blood Pressure [Ri ght Upper Arm] Blood Pressure [or thostatic lying Le ft Arm] Blood Pressure [or thostatic sitting Left Arm] Blood Pressure [or thostatic standing Left Arm] Pulse Oximetry 99 100 98 Oxygen Delivery Me thod 12/25/23 18:24 12/25/23 18:30 12/25/23 18:42 Temperature Pulse Rate 91 91 87 Pulse Rate [Pulse Oximeter] Pulse Rate [orthos tatic lying Pulse Oximeter] Pulse Rate [orthos tatic sitting Puls e Oximeter] Pulse Rate [orthos tatic standing Pul se Oximeter] Respiratory Rate Blood Pressure 145/94 H 139/79 Blood Pressure [Ri ght Upper Arm] Blood Pressure [or thostatic lying Le ft Arm] Blood Pressure [or thostatic sitting Left Arm] Blood Pressure [or thostatic standing Left Arm] Pulse Oximetry 98 99 97 Oxygen Delivery Co thod 12/25/23 18:45 12/25/23 19:00 12/25/23 19:01 Temperature Pulse Rate 83 80 86 Pulse Rate [Pulse Oximeter] Pulse Rate [orthos tatic lying Pulse Oximeter] Pulse Rate [orthos tatic sitting Puls e Oximeter] Pulse Rate [orthos tatic standing Pul se Oximeter] Respiratory Rate Blood Pressure 136/71 Blood Pressure [Ri ght Upper Arm] Blood Pressure [or thostatic lying Le ft Arm] Blood Pressure [or thostatic sitting Left Arm] Blood Pressure [or thostatic standing Left Arm] Pulse Oximetry 97 97 97 Oxygen Delivery Co thod 12/25/23 19:15 12/25/23 19:16 12/25/23 19:17 Temperature Pulse Rate 90 94 93 Pulse Rate [Pulse Oximeter] Pulse Rate [orthos tatic lying Pulse Oximeter] Pulse Rate [orthos tatic sitting Puls e Oximeter] Pulse Rate [orthos tatic standing Pul se Oximeter] Respiratory Rate Blood Pressure 133/78 116/86 Blood Pressure [Ri ght Upper Arm] Blood Pressure [or thostatic lying Le ft Arm] Blood Pressure [or thostatic sitting Left Arm] Blood Pressure [or thostatic standing Left Arm] Pulse Oximetry 96 98 99 Oxygen Delivery Me thod 12/25/23 19:21 12/25/23 19:24 12/25/23 19:30 Temperature Pulse Rate 78 83 Pulse Rate [Pulse Oximeter] Pulse Rate [orthos tatic lying Pulse Oximeter] 80 Pulse Rate [orthos tatic sitting Puls e Oximeter] 86 Pulse Rate [orthos tatic standing Pul se Oximeter] 94 Respiratory Rate Blood Pressure Blood Pressure [Ri ght Upper Arm] Blood Pressure [or thostatic lying Le ft Arm] 136/71 Blood Pressure [or thostatic sitting Left Arm] 133/78 Blood Pressure [or thostatic standing Left Arm] 118/86 Pulse Oximetry 99 98 Oxygen Delivery Me thod 12/25/23 19:44 12/25/23 19:45 12/25/23 20:00 Temperature Pulse Rate 83 83 82 Pulse Rate [Pulse Oximeter] Pulse Rate [orthos tatic lying Pulse Oximeter] Pulse Rate [orthos tatic sitting Puls e Oximeter] Pulse Rate [orthos tatic standing Pul se Oximeter] Respiratory Rate Blood Pressure Blood Pressure [Ri ght Upper Arm] Blood Pressure [or thostatic lying Le ft Arm] Blood Pressure [or thostatic sitting Left Arm] Blood Pressure [or thostatic standing Left Arm] Pulse Oximetry 96 96 95 Oxygen Delivery Co thod 12/25/23 20:04 12/25/23 20:15 12/25/23 20:30 Temperature Pulse Rate 80 79 78 Pulse Rate [Pulse Oximeter] Pulse Rate [orthos tatic lying Pulse Oximeter] Pulse Rate [orthos tatic sitting Puls e Oximeter] Pulse Rate [orthos tatic standing Pul se Oximeter] Respiratory Rate Blood Pressure Blood Pressure [Ri ght Upper Arm] Blood Pressure [or thostatic lying Le ft Arm] Blood Pressure [or thostatic sitting Left Arm] Blood Pressure [or thostatic standing Left Arm] Pulse Oximetry 96 95 95 Oxygen Delivery Co thod 12/25/23 20:45 12/25/23 21:00 12/25/23 21:15 Temperature Pulse Rate 75 82 73 Pulse Rate [Pulse Oximeter] Pulse Rate [orthos tatic lying Pulse Oximeter] Pulse Rate [orthos tatic sitting Puls e Oximeter] Pulse Rate [orthos tatic standing Pul se Oximeter] Respiratory Rate Blood Pressure Blood Pressure [Ri ght Upper Arm] Blood Pressure [or thostatic lying Le ft Arm] Blood Pressure [or thostatic sitting Left Arm] Blood Pressure [or thostatic standing Left Arm] Pulse Oximetry 97 98 95 Oxygen Delivery Me thod Hospitalist - H&P: Result Labs Labs: Short CBC 12/25/23 Range/Units 18:03 WBC 7.45 (4.50-11.00) K/uL Hgb 14.7 (12.0-16.0) gm/dL Hct 44.0 (33.0-51.0) % Plt Count 341 (140-440) K/uL BMP 12/25/23 18:03 Sodium 141 Potassium 3.9 Chloride 109 Carbon Dioxide 25 BUN 16 Creatinine 0.7 Glucose 101 Calcium 8.8 Cardiac Enzymes 12/25/23 Range/Units 18:03 Troponin I < 0.01 L (0.01-0.04) ng/mL Liver Function 12/25/23 Range/Units 18:03 Total Bilirubin 0.3 (0.1-1.5) mg/dL Direct Bilirubin 0.1 (0.0-0.5) mg/dL AST 21 (12-35) U/L ALT 28 (4-35) U/L Alkaline Phosphatase 84 (40-150) U/L Albumin 4.1 (3.3-5.0) g/dL Assessment and Plan Assessment and plan (1) Closed head injury: Problem comment: -witnessed syncope, fell back on cement from squatting position. -abrasion to the posterior scalp -CT reviewed -by report EMS stated BS was 130 -not orthostatic in the ED -MR Brain, Neuro consult, echo, telemetry, orthostatics, OT assessment for canolith repositioning, check UA, follow blood sugars -avoid narcotic pain medications -differential diagnosis: Vasovagal secondary to polypharmacy, anxiety, blood sugar fluctuations. There may be an autonomic component. Consider cardiac etiology, organic brain finding, chronic vertigo, infection Status: Acute (2) Concussion: Problem comment: -observation admission (lives alone, significant vertigo, AMS) -Tylenol, NSAIDs for pain Status: Acute (3) AMS (altered mental status): Problem comment: -concussed -admit for observation Status: Acute (4) Diabetes mellitus type 2, insulin dependent: Problem comment: newly diagnosed in 2023, A1C in 11/23 13.9 (before insulin in the last month) -insulin glargine 14 units hs -regular insulin with meals + SSI -metformin 1 gram BID Status: Acute (5) Anxiety: Problem comment: -Contributing to assessment -Cont Buspar, Cymbalta Status: Acute (6) Chronic pain: Problem comment: -disability since her 30s. Sounds like musculoskeletal pain, depression, migraine contributed to her inability to work. -there was a controlled substance agreement noted in her chart. However she said that she no longer takes and opioids. -she does smoke pot at night only, takes Seroquel and gabapentin at night Status: Acute (7) Depression: Problem comment: severe; ED visit for SI in 05/25 -janusz hagan seroquel Status: Acute (8) Hypothyroidism: Problem comment: synthroid -normal TSH in November of 2023 Status: Acute (9) Moderate asthma: Problem comment: -singulair, advair, flonase, albuterol Status: Acute (10) Obesity: Status: Acute (11) Former smoker: Status: Acute
[2023-12-25] MEDS: KETOROLAC 30 MG/ML inj IVP (22:41)
[2023-12-25] MEDS: LACTATED RINGERS 1000 ML 1,000 ML 200 ML IV (22:44)
[2023-12-25] MEDS: ACETAMINOPHEN 325 MG TABLET PO (22:50)
[2023-12-25 23:09] LABS: Hemoglobin A1C* 9.5 % (0-5.6)
[2023-12-26] VITALS (7 sets, daily range): BP systolic 116–144; BP diastolic 58–85; PULSE 66–80; RESP 18–22; TEMP 36.6–36.7; O2SAT 96–99
[2023-12-26] MEDS: PANTOPRAZOLE SODIUM 40 MG INJ IVP (00:08)
[2023-12-26] MEDS: GABAPENTIN 300 MG CAPSULE 900 MG PO (00:14)
[2023-12-26] MEDS: BUSPIRONE 10 MG TABLET 30 MG PO ×2 (00:15→08:36)
[2023-12-26] MEDS: LACTATED RINGERS 1000 ML 1,000 ML 125 ML IV ×2 (01:00→06:10)
--- NOTE | 2023-12-26 01:21 | CT_ITS ---
Patient: MUNA COLLADO Facility:?[facility] Patient ID:?[id number] Site Patient ID:?[id number]. Site :?[id number] Study:?CT-Head W/O-12/26/2023 1:59:32 AM Ordering Physician:MAYA Final Report: INDICATION: Head injury from fall, now with blurry vision, headache and unequal pupils TECHNIQUE: CT Head without i.v. contrast. Coronal and sagittal reformats were obtained. COMPARISON: 12/25/2023 FINDINGS: CSF space: The ventricles are normal for age. Brain: No evidence of mass, acute infarction or hemorrhage is seen. No mass- effect or midline shift is seen. The brain parenchyma is otherwise normal in appearance with preservation of the flores-white matter junction. Calvarium: The visualized paranasal sinuses are well aerated. The mastoid air cells are clear. The visualized orbits are grossly unremarkable. The calvarium is unremarkable in appearance with no fractures identified. IMPRESSION: 1. No evidence of acute infarction, intracranial hemorrhage, or mass-effect seen. Dictated by Suleman Herman MD @ 12/26/2023 2:15:54 AM Please note that all CT scans at this facility use dose modulation, iterative reconstruction, and/or weight-based dosing when appropriate to reduce radiation dose to as low as reasonably achievable. Dictated by: Suleman Herman MD @ 12/26/2023 02:15:57 Signed by:?Suleman Herman MD @12/26/2023 2:15:57 AM (Electronic Signature)
--- NOTE | 2023-12-26 01:24 | W.PM.TELEPRO ---
Telehealth Hospitalist-PN: Sub Subjective Interval History: I was called by nursing staff about Giana Guillaume. She was admitted earlier this evening after suffering a fall and hitting her head on cement. Nursing staff report that they have been doing neurochecks on Samira and this last neurocheck did show her pupils to be significantly different in size which was not noticed before. With her anisocoria noted now in the patient having a history of a fall striking her head on cement, I will order a stat noncontrast CT scan looking for an acute intracranial bleed. Will continue to follow closely from medical standpoint. Exam Narrative Exam Narrative: Physical Exam GENERAL: ?vital signs reviewed, well developed and nourished, in no distress HEENT: pupils are equal round and reactive to light, extraocular movements are grossly within normal limits and oral mucosa is moist. NECK: Supple without lymphadenopathy or thyromegaly according to nursing staff examination observation HEART: Regular rate and rhythm without any rubs, murmurs, or gallops. LUNGS: Clear to auscultation bilaterally with good air movement throughout ABDOMEN: Observation from nurse assisted exam, abdomen appears soft, nontender, and nondistended with Positive bowel sounds noted. EXTREMITIES: Strength and sensation is observed to be grossly within normal limits in the upper and lower extremities.? No focal strength deficit is observed. SKIN:? Observed warm and dry with color normal Const Vital Signs, click to edit/add: Vital Signs - 24 hr 12/25/23 17:34 12/25/23 17:49 12/25/23 18:02 Temperature 97.6 F Pulse Rate 83 88 Pulse Rate [Pulse Oximeter] 88 Pulse Rate [orthostatic lying Pulse Oximeter] Pulse Rate [orthostatic sitting Pulse Oximeter] Pulse Rate [orthostatic standing Pulse Oximeter] Respiratory Rate 18 Blood Pressure Blood Pressure [Right Arm] Blood Pressure [Right Upper Arm] 95/69 Blood Pressure [orthostatic lying Left Arm] Blood Pressure [orthostatic sitting Left Arm] Blood Pressure [orthostatic standing Left Arm] Pulse Oximetry 100 95 97 Oxygen Delivery Method Room Air 12/25/23 18:03 12/25/23 18:04 12/25/23 18:23 Temperature Pulse Rate 91 91 88 Pulse Rate [Pulse Oximeter] Pulse Rate [orthostatic lying Pulse Oximeter] Pulse Rate [orthostatic sitting Pulse Oximeter] Pulse Rate [orthostatic standing Pulse Oximeter] Respiratory Rate Blood Pressure 148/84 H Blood Pressure [Right Arm] Blood Pressure [Right Upper Arm] Blood Pressure [orthostatic lying Left Arm] Blood Pressure [orthostatic sitting Left Arm] Blood Pressure [orthostatic standing Left Arm] Pulse Oximetry 99 100 98 Oxygen Delivery Method 12/25/23 18:24 12/25/23 18:30 12/25/23 18:42 Temperature Pulse Rate 91 91 87 Pulse Rate [Pulse Oximeter] Pulse Rate [orthostatic lying Pulse Oximeter] Pulse Rate [orthostatic sitting Pulse Oximeter] Pulse Rate [orthostatic standing Pulse Oximeter] Respiratory Rate Blood Pressure 145/94 H 139/79 Blood Pressure [Right Arm] Blood Pressure [Right Upper Arm] Blood Pressure [orthostatic lying Left Arm] Blood Pressure [orthostatic sitting Left Arm] Blood Pressure [orthostatic standing Left Arm] Pulse Oximetry 98 99 97 Oxygen Delivery Method 12/25/23 18:45 12/25/23 19:00 12/25/23 19:01 Temperature Pulse Rate 83 80 86 Pulse Rate [Pulse Oximeter] Pulse Rate [orthostatic lying Pulse Oximeter] Pulse Rate [orthostatic sitting Pulse Oximeter] Pulse Rate [orthostatic standing Pulse Oximeter] Respiratory Rate Blood Pressure 136/71 Blood Pressure [Right Arm] Blood Pressure [Right Upper Arm] Blood Pressure [orthostatic lying Left Arm] Blood Pressure [orthostatic sitting Left Arm] Blood Pressure [orthostatic standing Left Arm] Pulse Oximetry 97 97 97 Oxygen Delivery Method 12/25/23 19:15 12/25/23 19:16 12/25/23 19:17 Temperature Pulse Rate 90 94 93 Pulse Rate [Pulse Oximeter] Pulse Rate [orthostatic lying Pulse Oximeter] Pulse Rate [orthostatic sitting Pulse Oximeter] Pulse Rate [orthostatic standing Pulse Oximeter] Respiratory Rate Blood Pressure 133/78 116/86 Blood Pressure [Right Arm] Blood Pressure [Right Upper Arm] Blood Pressure [orthostatic lying Left Arm] Blood Pressure [orthostatic sitting Left Arm] Blood Pressure [orthostatic standing Left Arm] Pulse Oximetry 96 98 99 Oxygen Delivery Method 12/25/23 19:21 12/25/23 19:24 12/25/23 19:30 Temperature Pulse Rate 78 83 Pulse Rate [Pulse Oximeter] Pulse Rate [orthostatic lying Pulse Oximeter] 80 Pulse Rate [orthostatic sitting Pulse Oximeter] 86 Pulse Rate [orthostatic standing Pulse Oximeter] 94 Respiratory Rate Blood Pressure Blood Pressure [Right Arm] Blood Pressure [Right Upper Arm] Blood Pressure [orthostatic lying Left Arm] 136/71 Blood Pressure [orthostatic sitting Left Arm] 133/78 Blood Pressure [orthostatic standing Left Arm] 118/86 Pulse Oximetry 99 98 Oxygen Delivery Method 12/25/23 19:44 12/25/23 19:45 12/25/23 20:00 Temperature Pulse Rate 83 83 82 Pulse Rate [Pulse Oximeter] Pulse Rate [orthostatic lying Pulse Oximeter] Pulse Rate [orthostatic sitting Pulse Oximeter] Pulse Rate [orthostatic standing Pulse Oximeter] Respiratory Rate Blood Pressure Blood Pressure [Right Arm] Blood Pressure [Right Upper Arm] Blood Pressure [orthostatic lying Left Arm] Blood Pressure [orthostatic sitting Left Arm] Blood Pressure [orthostatic standing Left Arm] Pulse Oximetry 96 96 95 Oxygen Delivery Method 12/25/23 20:04 12/25/23 20:15 12/25/23 20:30 Temperature Pulse Rate 80 79 78 Pulse Rate [Pulse Oximeter] Pulse Rate [orthostatic lying Pulse Oximeter] Pulse Rate [orthostatic sitting Pulse Oximeter] Pulse Rate [orthostatic standing Pulse Oximeter] Respiratory Rate Blood Pressure Blood Pressure [Right Arm] Blood Pressure [Right Upper Arm] Blood Pressure [orthostatic lying Left Arm] Blood Pressure [orthostatic sitting Left Arm] Blood Pressure [orthostatic standing Left Arm] Pulse Oximetry 96 95 95 Oxygen Delivery Method 12/25/23 20:45 12/25/23 21:00 12/25/23 21:15 Temperature Pulse Rate 75 82 73 Pulse Rate [Pulse Oximeter] Pulse Rate [orthostatic lying Pulse Oximeter] Pulse Rate [orthostatic sitting Pulse Oximeter] Pulse Rate [orthostatic standing Pulse Oximeter] Respiratory Rate Blood Pressure Blood Pressure [Right Arm] Blood Pressure [Right Upper Arm] Blood Pressure [orthostatic lying Left Arm] Blood Pressure [orthostatic sitting Left Arm] Blood Pressure [orthostatic standing Left Arm] Pulse Oximetry 97 98 95 Oxygen Delivery Method 12/25/23 21:23 12/25/23 22:04 12/25/23 22:04 Temperature 98.2 F Pulse Rate 74 Pulse Rate [Pulse Oximeter] 74 Pulse Rate [orthostatic lying Pulse Oximeter] Pulse Rate [orthostatic sitting Pulse Oximeter] Pulse Rate [orthostatic standing Pulse Oximeter] Respiratory Rate 18 18 Blood Pressure 132/75 Blood Pressure [Right Arm] 139/87 Blood Pressure [Right Upper Arm] Blood Pressure [orthostatic lying Left Arm] Blood Pressure [orthostatic sitting Left Arm] Blood Pressure [orthostatic standing Left Arm] Pulse Oximetry 96 98 98 Oxygen Delivery Method Room Air Room Air 12/25/23 22:08 Temperature 98.2 F Pulse Rate Pulse Rate [Pulse Oximeter] 74 Pulse Rate [orthostatic lying Pulse Oximeter] Pulse Rate [orthostatic sitting Pulse Oximeter] Pulse Rate [orthostatic standing Pulse Oximeter] Respiratory Rate 19 Blood Pressure Blood Pressure [Right Arm] 139/87 Blood Pressure [Right Upper Arm] Blood Pressure [orthostatic lying Left Arm] Blood Pressure [orthostatic sitting Left Arm] Blood Pressure [orthostatic standing Left Arm] Pulse Oximetry 98 Oxygen Delivery Method Room Air Labs Labs: Laboratory Results - last 24 hr 12/25/23 12/25/23 18:03 22:04 WBC 7.45 RBC 4.60 Hgb 14.7 Hct 44.0 MCV 96 MCH 32 MCHC 33 RDW Coeff of Vicky 12.4 Plt Count 341 Neut % (Auto) 62.9 Lymph % (Auto) 24.2 [place] % (Auto) 6.2 Eos % (Auto) 5.9 Baso % (Auto) 0.5 Neut # (Auto) 4.69 Lymph # (Auto) 1.80 [place] # (Auto) 0.50 Eos # (Auto) 0.44 Baso # (Auto) 0.04 Abs Immat Gran (auto) 0.02 Imm/Tot Granulo (auto) 0.3 Sodium 141 Potassium 3.9 Chloride 109 Carbon Dioxide 25 Anion Gap 7 BUN 16 Creatinine 0.7 Estimated Creat Clear 80.75 Estimated GFR 101 Glucose 101 Hemoglobin A1c 9.5 H Calcium 8.8 Magnesium 2.1 Total Bilirubin 0.3 Direct Bilirubin 0.1 AST 21 ALT 28 Alkaline Phosphatase 84 Troponin I < 0.01 L C-Reactive Protein < 0.5 L NT-Pro-B Natriuret Pep < 20 Total Protein 7.0 Albumin 4.1 Ethyl Alcohol < 0.01 L Lab Acknowledgement Test Added POC Troponin I 0.00 L Telehealth: Statement Statement Telehealth Visit: Today's History and Physical is provided via interactive telehealth by Polo Piper MD.? Patient is located at [facility].? Provider is located at [facility].? Nursing staff assisted with the patient's exam. The visit being done today meets criteria for a telehealth visit and the patient or patient?s parent/guardian is aware the visit is a telehealth visit.
[2023-12-26 02:35] LABS: Appearance Urine Clear (Clear); Bilirubin Urine Negative (Negative); Blood Urine Negative (Negative); Color Urine Yellow (Yellow); Glucose Urine Negative (Negative); Ketones Urine Negative (Negative); Leukocyte Esterase Urine Negative (Negative); Nitrite Urine Negative (Negative); Protein Urine Negative (Negative); Urobilinogen Urine 0.2 (0.2-1.0)
[2023-12-26 02:42] LABS: Bacteria Urine Few; RBC Urine 0-2 (0-2); Squamous Epithelial Cell Urine Few (None-Few); WBC Urine 0-2 (0-5)
--- NOTE | 2023-12-26 06:45 | PC.NURSE ---
Patient admitted from ED at 2151. Prefers to be called ?Kiersten.? Abrasion to scalp on back of head with trace amount of blood noted on pillowcase upon arrival; no active bleeding. Second abrasion with dried scab noted to pinky on left hand. Reported feeling dizzy and somewhat nauseated with movement. Ambulated to bathroom with transfer belt and assist of one. Given PRN Tylenol and Ketorolac for pain in back of head at abrasion site and at base of head rated 7/10. At times reported that she was not having any pain. Easily awakens when spoken to. Unequal pupils noted during?neuro assessment at 0020. Left pupil larger than right and slower to react to light. No other changes from prior assessment noted. Luis FRIEND called and updated. New orders given for STAT CT scan without contrast. Patient updated on normal CT results. Per MD continue with neuro checks. Neuro checks have been unchanged since that time.?
[2023-12-26] MEDS: ACETAMINOPHEN 325 MG TABLET PO (08:35)
[2023-12-26] MEDS: DULOXETINE 30 MG CAPSULE DR 90 MG PO (08:35)
[2023-12-26] MEDS: TOPIRAMATE 50 MG TABLET 100 MG PO (08:36)
[2023-12-26] MEDS: KETOROLAC 30 MG/ML inj IVP (08:36)
--- NOTE | 2023-12-26 09:23 | US_ITS ---
Patient: MUNA COLLADO Facility:?[facility] Patient ID:?[id number] Site Patient ID:?[id number]. Site :?[id number] Study:?US-Head Angio Bilateral CAROTID-12/26/2023 10:13:28 AM Ordering Physician:GRACIA BARKER Final Report: CLINICAL HISTORY: Decreased carotid flow TECHNIQUE: The carotid circulations and the vertebral arteries in the neck were examined with flores-scale ultrasound, color-flow and Doppler spectral analysis. Degrees of stenosis were determined using SRU 2002 Consensus Panel Criteria. FINDINGS: No significant atherosclerotic plaquing identified within the interrogated cervical carotid arterial systems on either side. Carotid peak systolic velocities remain within normal limits. The ICA/CCA ratios are 0.9 on the right and 0.8 on the left. Antegrade flow is present within the bilateral vertebral arteries. Multiphasic waveforms are noted within the bilateral subclavian arteries. Please refer to the technologist worksheet for detailed flow velocities. IMPRESSION: 1. Normal sonographic assessment of the bilateral cervical carotid arterial systems. 2. Antegrade flow within the bilateral vertebral arteries. Dictated by Sarah Pérez MD @ 12/26/2023 11:40:15 AM Signed by:?Sarah Pérez MD @12/26/2023 11:40:15 AM (Electronic Signature)
--- NOTE | 2023-12-26 09:26 | PM.IMPN1 ---
Progress Note: A&P Assessment and plan (1) Closed head injury: Problem details: - witnessed syncope, fell back on cement from squatting position - ddx: Vasovagal 2/2 polypharmacy, anxiety, blood sugar, autonomia, atypical vertigo, infection, organic brain finding - abrasion to the posterior scalp - CT in ED reassuring, repeat CT overnight 12/24 also reassuring - by report, EMS stated BS was 130 - no orthostasis or abnormal EKG findings in ED - Plan for 12/25: MRI brain, Neurology consult, telemetry, carotid ultrasound, therapies. Continue to follow BG and telemetry Status: Acute (2) AMS (altered mental status): Problem details: - appears improved on hospital day 1, likely 2/2 concussion Status: Acute (3) Concussion: Problem details: - observation admission (lives alone, significant vertigo, AMS) - Tylenol, NSAIDs for pain, therapies Status: Acute (4) Diabetes mellitus type 2, insulin dependent: Problem details: - newly diagnosed in 2023, A1C in 11/23 13.9 (before insulin in the last month), down to 9.5 on admission 12/25/23 - insulin glargine 14 units hs - regular insulin with meals + SSI - metformin 1 gram BID Status: Acute (5) Moderate asthma: Problem details: - Singulair, Advair, Flonase, albuterol; no evidence of exacerbation Status: Acute (6) Hypothyroidism: Problem details: - normal TSH in November of 2023, continue home Levothyroxine Status: Acute (7) Chronic pain: Problem details: - disability since her 30s. Sounds like musculoskeletal pain, depression, migraine contributed to her inability to work - there was a controlled substance agreement noted in her chart. However she said that she no longer takes opiates, confirmed with [employer] - she does smoke pot at night only, takes Seroquel and gabapentin at night Status: Acute (8) Anxiety: Problem details: - Contributing to assessment - Continue home medications of Buspar Cymbalta Status: Acute Plan - per above - reviewed with Neurology who will see her after imaging is completed - SCDs for ppx - likely home tomorrow Subjective Date Seen: 12/26/23 Interval history: Kiersten was admitted last night after a fall s/p syncopal episode. She had a negative head CT and EKG in ER. Overnight, there was concern for anisocoria and a repeat head CT was obtained (negative). Since admission, BG 70s-100s. This morning, Kiersten notes persistent dizziness and worries about being able to complete her ADLs given symptoms. Mild neck stiffness and discomfort over head abrasion, both improved from yesterday. No other concerns for hospitalist this morning. Exam Narrative: Exam Narrative: GEN: Alert and sitting in bedside chair, eating breakfast HEENT: Oropharynx moist and clear, tongue protrudes midline. PERRL and EOMIs CV: RRR, No concerning murmurs. I am unable to auscultate any flow in bilateral carotids R: LCTA bilaterally without concerning wheezing, air movement adequate Skin: No concerning skin lesions or rashes on exposed skin Neuro: Utilizing BUEs to eat, no resting tremor, no intention tremor. Gait not observed Psych: Appropriate, mild anxiety regarding symptoms Const: Vital Signs, click to edit/add: Vital Signs - 24 hr 12/25/23 17:34 12/25/23 17:49 12/25/23 18:02 Temperature 97.6 F Pulse Rate 83 88 Pulse Rate [Pulse Oximeter] 88 Pulse Rate [orthos tatic lying Pulse Oximeter] Pulse Rate [orthos tatic sitting Puls e Oximeter] Pulse Rate [orthos tatic standing Pul se Oximeter] Respiratory Rate 18 Blood Pressure Blood Pressure [Ri ght Arm] Blood Pressure [Ri ght Upper Arm] 95/69 Blood Pressure [or thostatic lying Le ft Arm] Blood Pressure [or thostatic sitting Left Arm] Blood Pressure [or thostatic standing Left Arm] Pulse Oximetry 100 95 97 Oxygen Delivery Me thod Room Air 12/25/23 18:03 12/25/23 18:04 12/25/23 18:23 Temperature Pulse Rate 91 91 88 Pulse Rate [Pulse Oximeter] Pulse Rate [orthos tatic lying Pulse Oximeter] Pulse Rate [orthos tatic sitting Puls e Oximeter] Pulse Rate [orthos tatic standing Pul se Oximeter] Respiratory Rate Blood Pressure 148/84 H Blood Pressure [Ri ght Arm] Blood Pressure [Ri ght Upper Arm] Blood Pressure [or thostatic lying Le ft Arm] Blood Pressure [or thostatic sitting Left Arm] Blood Pressure [or thostatic standing Left Arm] Pulse Oximetry 99 100 98 Oxygen Delivery Me thod 12/25/23 18:24 04/24/24 18:30 12/25/23 18:42 Temperature Pulse Rate 91 91 87 Pulse Rate [Pulse Oximeter] Pulse Rate [orthos tatic lying Pulse Oximeter] Pulse Rate [orthos tatic sitting Puls e Oximeter] Pulse Rate [orthos tatic standing Pul se Oximeter] Respiratory Rate Blood Pressure 145/94 H 139/79 Blood Pressure [Ri ght Arm] Blood Pressure [Ri ght Upper Arm] Blood Pressure [or thostatic lying Le ft Arm] Blood Pressure [or thostatic sitting Left Arm] Blood Pressure [or thostatic standing Left Arm] Pulse Oximetry 98 99 97 Oxygen Delivery Me thod 12/25/23 18:45 12/25/23 19:00 12/25/23 19:01 Temperature Pulse Rate 83 80 86 Pulse Rate [Pulse Oximeter] Pulse Rate [orthos tatic lying Pulse Oximeter] Pulse Rate [orthos tatic sitting Puls e Oximeter] Pulse Rate [orthos tatic standing Pul se Oximeter] Respiratory Rate Blood Pressure 136/71 Blood Pressure [Ri ght Arm] Blood Pressure [Ri ght Upper Arm] Blood Pressure [or thostatic lying Le ft Arm] Blood Pressure [or thostatic sitting Left Arm] Blood Pressure [or thostatic standing Left Arm] Pulse Oximetry 97 97 97 Oxygen Delivery Me thod 12/25/23 19:15 12/25/23 19:16 12/25/23 19:17 Temperature Pulse Rate 90 94 93 Pulse Rate [Pulse Oximeter] Pulse Rate [orthos tatic lying Pulse Oximeter] Pulse Rate [orthos tatic sitting Puls e Oximeter] Pulse Rate [orthos tatic standing Pul se Oximeter] Respiratory Rate Blood Pressure 133/78 116/86 Blood Pressure [Ri ght Arm] Blood Pressure [Ri ght Upper Arm] Blood Pressure [or thostatic lying Le ft Arm] Blood Pressure [or thostatic sitting Left Arm] Blood Pressure [or thostatic standing Left Arm] Pulse Oximetry 96 98 99 Oxygen Delivery Me thod 12/25/23 19:21 12/25/23 19:24 12/25/23 19:30 Temperature Pulse Rate 78 83 Pulse Rate [Pulse Oximeter] Pulse Rate [orthos tatic lying Pulse Oximeter] 80 Pulse Rate [orthos tatic sitting Puls e Oximeter] 86 Pulse Rate [orthos tatic standing Pul se Oximeter] 94 Respiratory Rate Blood Pressure Blood Pressure [Ri ght Arm] Blood Pressure [Ri ght Upper Arm] Blood Pressure [or thostatic lying Le ft Arm] 136/71 Blood Pressure [or thostatic sitting Left Arm] 133/78 Blood Pressure [or thostatic standing Left Arm] 118/86 Pulse Oximetry 99 98 Oxygen Delivery Me thod 12/25/23 19:44 12/25/23 19:45 12/25/23 20:00 Temperature Pulse Rate 83 83 82 Pulse Rate [Pulse Oximeter] Pulse Rate [orthos tatic lying Pulse Oximeter] Pulse Rate [orthos tatic sitting Puls e Oximeter] Pulse Rate [orthos tatic standing Pul se Oximeter] Respiratory Rate Blood Pressure Blood Pressure [Ri ght Arm] Blood Pressure [Ri ght Upper Arm] Blood Pressure [or thostatic lying Le ft Arm] Blood Pressure [or thostatic sitting Left Arm] Blood Pressure [or thostatic standing Left Arm] Pulse Oximetry 96 96 95 Oxygen Delivery Md thod 12/25/23 20:04 12/25/23 20:15 12/25/23 20:30 Temperature Pulse Rate 80 79 78 Pulse Rate [Pulse Oximeter] Pulse Rate [orthos tatic lying Pulse Oximeter] Pulse Rate [orthos tatic sitting Puls e Oximeter] Pulse Rate [orthos tatic standing Pul se Oximeter] Respiratory Rate Blood Pressure Blood Pressure [Ri ght Arm] Blood Pressure [Ri ght Upper Arm] Blood Pressure [or thostatic lying Le ft Arm] Blood Pressure [or thostatic sitting Left Arm] Blood Pressure [or thostatic standing Left Arm] Pulse Oximetry 96 95 95 Oxygen Delivery Md thod 12/25/23 20:45 12/25/23 21:00 12/25/23 21:15 Temperature Pulse Rate 75 82 73 Pulse Rate [Pulse Oximeter] Pulse Rate [orthos tatic lying Pulse Oximeter] Pulse Rate [orthos tatic sitting Puls e Oximeter] Pulse Rate [orthos tatic standing Pul se Oximeter] Respiratory Rate Blood Pressure Blood Pressure [Ri ght Arm] Blood Pressure [Ri ght Upper Arm] Blood Pressure [or thostatic lying Le ft Arm] Blood Pressure [or thostatic sitting Left Arm] Blood Pressure [or thostatic standing Left Arm] Pulse Oximetry 97 98 95 Oxygen Delivery Md thod 12/25/23 21:23 12/25/23 22:04 12/25/23 22:04 Temperature 98.2 F Pulse Rate 74 Pulse Rate [Pulse Oximeter] 74 Pulse Rate [orthos tatic lying Pulse Oximeter] Pulse Rate [orthos tatic sitting Puls e Oximeter] Pulse Rate [orthos tatic standing Pul se Oximeter] Respiratory Rate 18 18 Blood Pressure 132/75 Blood Pressure [Ri ght Arm] 139/87 Blood Pressure [Ri ght Upper Arm] Blood Pressure [or thostatic lying Le ft Arm] Blood Pressure [or thostatic sitting Left Arm] Blood Pressure [or thostatic standing Left Arm] Pulse Oximetry 96 98 98 Oxygen Delivery Me thod Room Air Room Air 12/25/23 22:08 12/25/23 23:00 12/26/23 01:20 Temperature 98.2 F Pulse Rate 70 Pulse Rate [Pulse Oximeter] 74 Pulse Rate [orthos tatic lying Pulse Oximeter] Pulse Rate [orthos tatic sitting Puls e Oximeter] Pulse Rate [orthos tatic standing Pul se Oximeter] Respiratory Rate 19 Blood Pressure Blood Pressure [Ri ght Arm] 139/87 Blood Pressure [Ri ght Upper Arm] Blood Pressure [or thostatic lying Le ft Arm] Blood Pressure [or thostatic sitting Left Arm] Blood Pressure [or thostatic standing Left Arm] Pulse Oximetry 98 98 Oxygen Delivery Md thod Room Air 12/26/23 02:02 12/26/23 07:00 Temperature 97.9 F 97.9 F Pulse Rate Pulse Rate [Pulse Oximeter] 69 76 Pulse Rate [orthos tatic lying Pulse Oximeter] Pulse Rate [orthos tatic sitting Puls e Oximeter] Pulse Rate [orthos tatic standing Pul se Oximeter] Respiratory Rate 19 18 Blood Pressure Blood Pressure [Ri ght Arm] 116/58 L 116/81 Blood Pressure [Ri ght Upper Arm] Blood Pressure [or thostatic lying Le ft Arm] Blood Pressure [or thostatic sitting Left Arm] Blood Pressure [or thostatic standing Left Arm] Pulse Oximetry 96 98 Oxygen Delivery Me thod Room Air Room Air Labs Labs: Laboratory Results - last 24 hr 12/25/23 12/25/23 12/26/23 18:03 22:04 02:20 WBC 7.45 RBC 4.60 Hgb 14.7 Hct 44.0 MCV 96 MCH 32 MCHC 33 RDW Coeff of Vicky 12.4 Plt Count 341 Neut % (Auto) 62.9 Lymph % (Auto) 24.2 [place] % (Auto) 6.2 Eos % (Auto) 5.9 Baso % (Auto) 0.5 Neut # (Auto) 4.69 Lymph # (Auto) 1.80 [place] # (Auto) 0.50 Eos # (Auto) 0.44 Baso # (Auto) 0.04 Abs Immat Gran (auto) 0.02 Imm/Tot Granulo (auto) 0.3 Sodium 141 Potassium 3.9 Chloride 109 Carbon Dioxide 25 Anion Gap 7 BUN 16 Creatinine 0.7 Estimated Creat Clear 80.75 Estimated GFR 101 Glucose 101 Hemoglobin A1c 9.5 H Calcium 8.8 Magnesium 2.1 Total Bilirubin 0.3 Direct Bilirubin 0.1 AST 21 ALT 28 Alkaline Phosphatase 84 Troponin I < 0.01 L C-Reactive Protein < 0.5 L NT-Pro-B Natriuret Pep < 20 Total Protein 7.0 Albumin 4.1 Urine Color Yellow Urine Appearance Clear Urine pH 7.0 Ur Specific [place] 1.010 Urine Protein Negative Urine Glucose (UA) Negative Urine Ketones Negative Urine Blood Negative Urine Nitrite Negative Urine Bilirubin Negative Urine Urobilinogen 0.2 Ur Leukocyte Esterase Negative Urine RBC 0-2 Urine WBC 0-2 Ur Squamous Epith Cells Few Urine Bacteria Few A Ethyl Alcohol < 0.01 L Lab Acknowledgement Test Added POC Troponin I 0.00 L
[2023-12-26] MEDS: polyethylene glycoL 3350 17 GM PACK PO (10:01)
--- NOTE | 2023-12-26 10:53 | NUTR.NU ---
RDN with nutrition screen related to positive MST score for eating poorly and 14-23 lbs weight loss recently. Patient admitted after a fall and hitting head. Patient also has newly diagnosed diabetes mellitus type 2. Per MD report, A1C last month was 13.9%. A1C 12/24/2022 9.5%. Current height 5ft 5in; weight 195 lb 9.6oz. BMI 32.5 kg/m2. Current diet is Regular. RDN visited with patient whom reports working with a dietitian for diabetes. Her blood sugars have improved. She has experienced weight loss recently, however she reports her weight has stabilized. Her appetite has also improved and she feels she is eating normally now. She declined diet education related to diabetes and declined changing diet to diabetic at this time. No nutrition interventions at this time. Encouraged patient to let staff know if she has any questions or concerns. RDN will continue to monitor and follow-up prn.
[2023-12-26] MEDS: METFORMIN 500 MG TABLET 1000 MG PO (10:55)
--- NOTE | 2023-12-26 11:15 | MR_ITS ---
Patient: MUNA COLLADO Facility:?[facility] Patient ID:?[id number] Site Patient ID:?[id number]. Site :?[id number] Study:?MRI-Head W/O-12/26/2023 12:01:08 PM Ordering Physician:?GRETCHEN BARKER Final Report: INDICATION: Recurrent syncope. TECHNIQUE: Brain MRI without contrast. COMPARISON: Head CT from 12/26/2023. FINDINGS: No evidence of acute ischemia. No evidence of acute or chronic intracranial blood products. No pathologic intracranial signal abnormality. No mass effect or herniation. No hydrocephalus or extra-axial collections. The pituitary gland, parasellar structures and optic chiasm are normal. Posterior fossa is normal. All the major intracranial vascular structures demonstrate normal flow-related signal. The orbital contents are normal. No calvarial or skull base marrow replacing process. Small left maxillary sinus retention cysts. No extracranial soft tissue findings. IMPRESSION: 1. No significant intracranial abnormality. Dictated by Dwain Casey MD @ 12/26/2023 12:12:16 PM Signed by:?Dwain Casey MD @12/26/2023 12:12:16 PM (Electronic Signature)
--- NOTE | 2023-12-26 11:44 | REH.OT ---
Orders received for OT eval and treat. Due to patient tests and therapist schedule, she will be evaluated on 12/27/23.
[2023-12-26] MEDS: NICOTINE 14 mg PATCH 1 PATCH TRANSDERMA (12:02)
[2023-12-26] MEDS: ONDANSETRON 2 MG/ML inj 4 MG IVP (12:02)
[2023-12-26] MEDS: hydrOXYzine pamoate 25 MG CAPSULE 50 MG PO (12:40)
--- NOTE | 2023-12-26 18:58 | PC.NURSE ---
Discharge: Patient pleasant and cooperative, A&O. Patient reported a headache throughout the day which was managed with an ice pack, and meds, see MAR. Neuro exam showed uneven pupils, left pupil was slightly sluggish, otherwise WNL. Patient reported dizziness and nausea when ambulating. Patient had MRI, tele neuro consult, and Echo, and tolerated all well. ?Discharge information was provided, all questions were answered. IV was infiltrated and discontinued, with tip intact.
--- NOTE | 2023-12-27 09:29 | PM.DS1 ---
DS: Providers Provider Date Seen: 12/26/23 Date of admission: 12/25/23 21:47 Primary care physician: Autumn Neves DO Admitting Clinician: Becca Sanchez MD Consults: OT, PT, Neurology Attending Physician on discharge: Deja Calderon MD Date of Discharge: 12/26/23 DS: Diagnosis Discharge Diagnosis (1) Closed head injury: Status: Acute Problem details: - witnessed syncope, fell back on cement from squatting position on 12/24 - ddx: Vasovagal 2/2 polypharmacy, anxiety, blood sugar, autonomia, atypical vertigo, infection, organic brain finding - abrasion to the posterior scalp - CT in ED reassuring, repeat CT overnight 12/24 also reassuring, as was MRI, telemetry, carotid ultrasound, TTE - by report, EMS stated BS was 130, remained wnl during stay - no orthostasis or abnormal EKG findings in ED, telemetry remained in sinus rhythm during stay - Seen by tele-Neurology, who did not have any formal recommendations or f/u besides outpatient concussion therapy (2) Concussion: Status: Acute Problem details: - observation admission (lives alone, significant vertigo, AMS) - Tylenol, NSAIDs for pain, therapies (3) AMS (altered mental status): Status: Acute Problem details: - back to baseline on hospital day 1, likely 2/2 concussion (4) Diabetes mellitus type 2, insulin dependent: Status: Acute Problem details: - newly diagnosed in 2023, A1C in 11/23 13.9 (before insulin in the last month), down to 9.5 on admission 12/25/23 - insulin glargine 14 units hs - regular insulin with meals + SSI - metformin 1 gram BID - stable BGs during stay (5) Anxiety: Status: Acute Problem details: - Contributing to assessment - Continue home medications of Buspar, Cymbalta (6) Chronic pain: Status: Acute Problem details: - disability since her 30s. Sounds like musculoskeletal pain, depression, migraine contributed to her inability to work - there was a controlled substance agreement noted in her chart. However she said that she no longer takes opiates, confirmed with [employer] - she does smoke pot at night only, takes Seroquel and gabapentin at night (7) Depression: Status: Acute Problem details: severe; ED visit for SI in 05/25 -janusz hagan seroquel (8) Hypothyroidism: Status: Acute Problem details: - normal TSH in November of 2023, continued home Levothyroxine during stay and upon d/c DS: Summary Hospital Course Hospital Course: Kiersten was admitted to the hospital on 12/24 after a syncopal episode, resulting in closed head injury with subsequent dizziness and concussion symptoms. Imaging during stay was reassuring (CT head x2, MRI, carotid ultrasound, TTE) as was EKG and telemetry. Patient was seen by therapies and Dr. Jackson of teleneurology ([facility]), who recommend outpatient concussion therapy in followup. She was back to baseline on hospital day 1 and requesting d/c home. No changes made to home medications. Close f/u with PCP scheduled upon discharge. Status at Discharge Overall status at discharge: patient is progressing back to baseline Time Spent with Patient Time attestation: Total time spent providing and/or coordinating discharge services: Time spent: Greater than 30 minutes Specific discharge activities: Reviewing test results, consult with Neurology, patient education (multiple visits) Exam Narrative: Exam Narrative: GEN: Alert and sitting in bedside chair, eating breakfast - when seen later in the day, she is ambulating in her room to the bathroom HEENT: Oropharynx moist and clear, tongue protrudes midline. PERRL and EOMIs CV: RRR, No concerning murmurs. I am unable to auscultate any flow in bilateral carotids R: LCTA bilaterally without concerning wheezing, air movement adequate Skin: No concerning skin lesions or rashes on exposed skin Neuro: Utilizing BUEs to eat, no resting tremor, no intention tremor. Gait not observed Psych: Appropriate, mild anxiety regarding symptoms Const: Vital Signs, click to edit/add: Vital Signs - 24 hr 12/26/23 12:06 12/26/23 14:45 12/26/23 15:00 Temperature 97.9 F Pulse Rate 77 Pulse Rate [Pulse Oximeter] 66 Respiratory Rate 22 Blood Pressure [Ri ght Arm] 144/85 H Pulse Oximetry 99 98 Oxygen Delivery Me thod Room Air 12/26/23 15:00 12/26/23 15:00 Temperature 98.0 F Pulse Rate Pulse Rate [Pulse Oximeter] 80 80 Respiratory Rate 18 18 Blood Pressure [Ri ght Arm] 129/72 Pulse Oximetry 98 Oxygen Delivery Me thod Room Air DS: Data Data Completed and Pending Labs on day of discharge: Preliminary micro results at discharge 12/26/23 02:20 Urine Culture - Preliminary Urine,Clean Catch NO GROWTH AFTER 24 HOURS Discharge Plan Discharge Disposition: Home, Self-Care Date of Admission: 12/25/23 21:47 Attending Provider on Discharge: Deja Calderon Primary Care Provider: Autumn Neves Condition: Improved Anticipated Discharge Date/Time: 12/26/23 18:00 Discharge Medications: Continued celecoxib 200 mg capsule 200 mg PO Q24H PRN metformin 500 mg tablet 1,000 mg PO BIDWMEAL omeprazole 40 mg capsule,delayed release(DR/EC) 40 mg PO DAILY quetiapine 100 mg tablet 100 mg PO HS levothyroxine 50 mcg tablet 50 mcg PO QAM buspirone 30 mg tablet 30 mg PO BID fluticasone propion-salmeterol [Advair Diskus] 500-50 mcg/dose blister with device 1 inh INHALATION BID gabapentin 300 mg capsule 900 mg PO HS montelukast 10 mg tablet 10 mg PO HS polyethylene glycol 3350 17 gram/dose powder 17 g PO DAILY topiramate 100 mg tablet 100 mg PO BID fluticasone propionate 50 mcg/actuation spray,suspension 2 spray INTRANASAL DAILY duloxetine 30 mg capsule,delayed release(DR/EC) 30 mg PO DAILY duloxetine 60 mg capsule,delayed release(DR/EC) 60 mg PO DAILY Linzess 290 mcg capsule 290 mcg PO DAILY sumatriptan succinate [Imitrex] 50 mg tablet 50 mg PO BID PRN glucose [TRUEplus Glucose] 4 gram tablet,chewable 4 g PO Q15M PRN Fiasp FlexTouch U-100 Insulin 100 unit/mL (3 mL) insulin pen 3 unit subcut TIDWM Rx Instructions: plus sliding scale insulin glargine [Basaglar KwikPen U-100 Insulin] 100 unit/mL (3 mL) insulin pen 16 unit subcut HS albuterol sulfate [Ventolin HFA] 90 mcg/actuation HFA aerosol inhaler 2 inh inhalation Q4H PRN Discharge Orders: Discharge Order (Routine); Ordered 12/26/23 Ordered By: Alejo Doran Patient Education: Concussion (DC) Additional Instructions: See Dr. Neves as scheduled in followup. Good idea to have specialized therapy with PT/OT/vision therapy for your concussion. Activity Level: Activity as Tolerated, No strenuous activity and Light activity Activity Detail: BRAIN REST - minimal screen time, low lights, low stress Discharge Diet: Diabetic Follow Up Appointments: Provider,Not a Local [Referring] - Autumn Neves DO [Primary Care Provider] - 01/01/24 11:00 am (Hospital f/u (concussion)) Forms: [employer] Info Instructions
== END 2023-12-26 18:20 | disposition home or self-care (01) ==
LOC: ED 21:17 → MEDSURG 21:48
PROVIDERS: Admitting Provider Family Medicine; Emergency Provider Family Medicine; PCP Family Medicine; Visit Provider Family Medicine
DX: S06.0X1A Concussion with loss of consciousness of 30 minutes or less, initial encounter (principal); S00.01XA Abrasion of scalp, initial encounter; R41.82 Altered mental status, unspecified; R42 Dizziness and giddiness; M79.18 Myalgia, other site; E11.9 Type 2 diabetes mellitus without complications; Z79.4 Long term (current) use of insulin; F41.9 Anxiety disorder, unspecified; J45.998 Other asthma; G89.29 Other chronic pain; F32.A Depression, unspecified; E03.9 Hypothyroidism, unspecified; J45.909 Unspecified asthma, uncomplicated; E66.9 Obesity, unspecified; K21.9 Gastro-esophageal reflux disease without esophagitis; Z79.84 Long term (current) use of oral hypoglycemic drugs; F43.10 Post-traumatic stress disorder, unspecified; Z87.891 Personal history of nicotine dependence; Z87.448 Personal history of other diseases of urinary system; Z90.710 Acquired absence of both cervix and uterus; Z90.722 Acquired absence of ovaries, bilateral; Z90.79 Acquired absence of other genital organ(s); Z90.49 Acquired absence of other specified parts of digestive tract; Z98.890 Other specified postprocedural states
CPT/HCPCS: 36415; 70450; 70551; 72125; 80048; 80076; 81001; 82077; 82962; 83036; 83735; 83880; 84484; 85025; 86140; 87086; 93005; 93306; 93880; 96361; 96374; 96375; 96376; 97116; 97162; 99205; 99284; 99285; G0378; G0427; A9270; C9113; J1885; J2405; J2550; J3010; J3360; J7030; J7120; S4990

== ENCOUNTER 2024-08-21 12:40 | Outpatient (CLI) | payer MEDICARE, MEDICAID, SELFPAY | END 2024-08-21 12:41 | disposition home or self-care (01) | PROVIDERS: PCP Family Medicine; Visit Provider Family Medicine | DX: M54.16 Radiculopathy, lumbar region (principal); M51.369 Other intervertebral disc degeneration, lumbar region without mention of lumbar back pain or lower extremity pain | CPT/HCPCS: 62323; J0702; Q9966 ==

== ENCOUNTER 2025-08-09 15:51 | Outpatient (CLI) | payer MEDICARE, MEDICAID, SELFPAY ==
[2025-08-09 21:29] LABS: Bacterial Vaginosis* Negative (Negative); Candida glab/krus NOT DETECTED (No Detected)
== END 2025-08-09 15:52 | disposition home or self-care (01) ==
LOC: NFLDREF 15:52
PROVIDERS: PCP Family Medicine; Visit Provider Obstetrics & Gynecology
DX: N94.89 Other specified conditions associated with female genital organs and menstrual cycle (principal); N89.8 Other specified noninflammatory disorders of vagina
CPT/HCPCS: 81513; 87481; 87661